=== PATIENT | female | born 1970 | race African-American/Black ===

== ENCOUNTER → 2022-01-17 | Outpatient (CLI) | payer BC ==
[~2022-01-17] MED LIST: IBUP-1027 PO
[2022-01-17 13:32] LABS: BASO # 0.1 x10^3/uL (0.0-0.2); BASO % 2 % (0-3); EOS # 0.1 x10^3/uL (0.0-0.7); EOS % 1 % (0-3); HEMATOCRIT 23.3 % (36.0-47.0); LYMPH # 0.7 x10^3/uL (1.0-4.8); LYMPH % 13 % (24-48); MEAN CORPUSCULAR HEMOGLOBIN 16 pg (25-35); MEAN CORPUSCULAR HGB CONC 29 g/dL (31-37); MEAN CORPUSCULAR VOLUME 56 fL (79-100); MONO # 0.5 x10^3/uL (0.0-1.1); MONO % 10 % (0-9); NEUT # 3.8 x10^3/uL (1.8-7.7); NEUT % 75 % (31-73); PLATELET COUNT 333 x10^3/uL (140-400); RED BLOOD COUNT 4.18 x10^6/uL (3.50-5.40); WHITE BLOOD COUNT 5.1 x10^3/uL (4.0-11.0)
[2022-01-17 13:34] LABS: HEMOGLOBIN 6.9 g/dL (12.0-15.5)
--- NOTE | 2022-01-17 13:45 | NUR ---
pt hbg is 6.9. reported to nurse and pt.
[2022-01-17 13:52] LABS: ALBUMIN 3.8 g/dL (3.4-5.0); ALBUMIN/GLOBULIN RATIO 1.1 (1.0-1.7); CALCIUM 8.5 mg/dL (8.5-10.1); CREATININE 0.8 mg/dL (0.6-1.0); GFR 90.8; POTASSIUM 4.1 mmol/L (3.5-5.1); TOTAL BILIRUBIN 0.4 mg/dL (0.2-1.0); TOTAL PROTEIN 7.4 g/dL (6.4-8.2)
[2022-01-17 14:08] LABS: ANISOCYTOSIS MOD; BIZZARE CELLS OCC; HYPOCHROMIA MARKED; MICROCYTOSIS MARKED; OVALOCYTES FEW; PLT ESTIMATE ADEQUATE (ADEQUATE); POIKILOCYTOSIS SLIGHT; POLYCHROMASIA SLIGHT; TARGET CELLS FEW; TEAR DROP CELLS OCC
[2022-01-17 14:09] LABS: SCHISTOCYTES OCC
--- NOTE | 2022-01-20 08:45 | NUR ---
Faxed pretesting results to Dr Young with attn to [facility] 6.9
--- NOTE | 2022-01-20 09:30 | NUR ---
Inocencia from Dr Young called back regarding labs. Patient to receive iron infusions prior to surgery.
== END ==
LOC: SURGPAT 12:32
PROVIDERS: ATTEND Obstetrics & Gynecology
DX: Z01.812 Encounter for preprocedural laboratory examination (principal)
CPT/HCPCS: 36415; 80053; 85025

== ENCOUNTER 2022-02-05 06:01 | Observation (INO) | payer BC ==
[2022-01-17 13:05] VITALS: BP 143/83
[2022-02-05] VITALS (13 sets, daily range): BP systolic 89–118; BP diastolic 47–88
[~2022-02-05] VITALS: Ht 170.2 cm; Wt 80.9 kg
[~2022-02-05 06:01] MED LIST changes: +HYDROmorphone 2 MG/ML INJ. IVP PRN; +MORPHINE SULFATE 2 MG/ML INJ. IVP PRN; +PROCHLORPERAZINE 10 MG/2 ML VIAL. IVP PRN; +fentaNYL PF VIAL 100 MCG/2 ML VIAL IVP PRN
[2022-02-05] MEDS: IV RINGERS,LACTATED 1000ML 1,000 ML IV SCH ×2 (06:29→10:13)
[2022-02-05 06:53] LABS: PROTHROMBIN TIME PATIENT 13.4 SEC (11.7-14.0)
[2022-02-05] MEDS ORDERED: ROCURONIUM 50 MG/5 ML VIAL. ONE (07:04)
[2022-02-05] MEDS ORDERED: ONDANSETRON PF 4 MG/2 ML VIAL. ONE (07:06)
[2022-02-05] MEDS ORDERED: DEXAMETHASONE SOD PHOS 4 MG/ML VIAL ONE (07:06)
[2022-02-05] MEDS ORDERED: LIDOCAINE 2% PF 5 ML VIAL. ONE (07:06)
[2022-02-05] MEDS ORDERED: BUPIVACAINE-EPI 0.25% 30 ML VIAL KIT. ONE (07:06)
[2022-02-05] MEDS ORDERED: INDIGOTINDISULFONATE SODIUM 40 MG/5 ML AMPUL. ONE (07:06)
[2022-02-05] MEDS ORDERED: PROPOFOL 10 MG/ML (20ML) VIAL. IV ONE (07:06)
[2022-02-05] MEDS ORDERED: ESTROGENS, CONJ VAGINAL CREAM 30GM TUBE. ONE (07:06)
[2022-02-05] MEDS ORDERED: SEVOFLURANE > 120 MINUTES. IH ONE ×2 (07:06→08:33)
[2022-02-05] MEDS ORDERED: fentaNYL PF VIAL 100 MCG/2 ML VIAL ONE (07:07)
[2022-02-05] MEDS ORDERED: KETOROLAC 30 MG/ML VIAL. ONE (07:09)
[2022-02-05] MEDS ORDERED: MIDAZOLAM HCL/PF 2 MG/2 ML VIAL. ONE (07:10)
[2022-02-05 07:42] LABS: HEMATOCRIT 33.9 % (36.0-47.0); HEMOGLOBIN 10.1 g/dL (12.0-15.5)
[2022-02-05] MEDS ORDERED: PHENYLEPHRINE in 0.9% NACL PF 1 MG/10 ML SYRINGE. IV ONE (07:48)
[2022-02-05] MEDS ORDERED: GLYCOPYRROLATE 1 MG/5 ML VIAL. ONE (08:07)
[2022-02-05] MEDS ORDERED: NEOSTIGMINE 10 MG/10 ML VIAL. ONE (08:07)
[2022-02-05] MEDS ORDERED: NEOSTIGMINE METHYLSULFATE 5 MG/5 ML SYRINGE. ONE (08:08)
[2022-02-05] MEDS ORDERED: HYDROmorphone 2 MG/ML INJ. ONE (09:21)
[2022-02-05] MEDS ORDERED: MAG HYDROX/ALUMINUM HYD/SIMETH 30 ML ORAL.SUSP PO PRN (10:00)
[2022-02-05] MEDS ORDERED: MORPHINE SULFATE 2 MG/ML INJ. IV PRN (10:00)
[2022-02-05] MEDS ORDERED: KETOROLAC 30 MG/ML VIAL. IVP PRN (10:00)
[2022-02-05] MEDS ORDERED: diphenhydrAMINE HCL 25 MG CAPSULE PO PRN (10:00)
[2022-02-05] MEDS ORDERED: HYDROcodone/APAP 5/325MG 1 TAB TABLET PO PRN (10:00)
[2022-02-05] MEDS ORDERED: oxyCODONE/APAP 5/325 1 TAB TABLET PO PRN (10:00)
[2022-02-05] MEDS ORDERED: NALOXONE 0.4 MG/ML VIAL. IV PRN (10:00)
[2022-02-05] MEDS ORDERED: ZOLPIDEM 5 MG TABLET. PO PRN (10:00)
[2022-02-05] MEDS ORDERED: ONDANSETRON PF 4 MG/2 ML VIAL. IV PRN (10:00)
[2022-02-05] MEDS ORDERED: LACTULOSE 20 GM/30 ML SOLUTION. PO PRN (10:00)
[2022-02-05] MEDS ORDERED: MAGNESIUM HYDROXIDE 2,400 MG/30 ML ORAL.SUSP. PO PRN (10:00)
[2022-02-05] MEDS ORDERED: 0.9 % SODIUM CHLORIDE 10 ML DISP.SYRIN. IV PRN (10:00)
[2022-02-05] MEDS ORDERED: diphenhydrAMINE 50 MG/ML VIAL IV PRN (10:00)
[2022-02-05] MEDS ORDERED: SIMETHICONE 80 MG TAB.CHEW PO PRN (10:00)
[2022-02-05] MEDS ORDERED: CALCIUM CARBONATE 500 MG TAB.CHEW PO PRN (10:00)
--- NOTE | 2022-02-05 10:15 | PDOC4 ---
BRIEF OPERATIVE NOTE Date: Feb 05, 2022 Pre-Op Diagnosis enlarged fibroid uterus, menorrhagia, anemia Post-Op Diagnosis same Procedure Performed LAVH, bilateral salpingectomy, morcellation of enlarged fibroid uterus vaginally Surgeon Dr. Beth Young Merchandise Flow Manager SHANELL Stearns Anesthesiologist Dr. Edwar Masters Anesthesia Type: General Blood Loss 150cc IV Fluid 1600cc Urine Output 160cc clear via cooley Specimens Obtained cervix, uterus, pieces of fibroids, tubes Findings very enlarged fibroid uterus, normal bilateral tubes and ovaries, normal appendix, grossly normal RUQ area Complications none Operative Note [id number] BETH YOUNG MD Feb 05, 2022 10:14
[2022-02-05 10:54] LABS: HEMATOCRIT 30.3 % (36.0-47.0); HEMOGLOBIN 9.1 g/dL (12.0-15.5); RED BLOOD COUNT 4.31 x10^6/uL (3.50-5.40); RED CELL DISTRIBUTION WIDTH 41.1 % (11.5-14.5); WHITE BLOOD COUNT 7.1 x10^3/uL (4.0-11.0)
--- NOTE | 2022-02-05 11:30 | OP ---
DATE OF SURGERY: 02/05/2022 PREOPERATIVE DIAGNOSES: Enlarged fibroid uterus, menorrhagia, chronic anemia. POSTOPERATIVE DIAGNOSES: Enlarged fibroid uterus, menorrhagia, chronic anemia. PROCEDURE: Laparoscopic-assisted vaginal hysterectomy, bilateral salpingectomy and morcellation of an enlarged fibroid uterus vaginally. SURGEON: Beth Young MD. SAP ABAP PROGRAMMER: SHANELL Delcid ANESTHESIOLOGIST: Dr. Lauri Masters. ANESTHESIA: General. BLOOD LOSS: 150 mL. URINE OUTPUT: 160 mL clear via Barrios catheter. IV FLUIDS: 1600 mL of crystalloid. SPECIMEN: The cervix, enlarged fibroid uterus morcellated in pieces and bilateral tubes. FINDINGS: A very enlarged fibroid uterus, normal bilateral tubes and ovaries, grossly normal bowel, right upper quadrant and appendix. No significant adhesive disease. DESCRIPTION OF PROCEDURE: This patient was taken to the operating room where general anesthesia was placed. The [facility] The patient's abdomen and vagina were prepped and draped in the normal sterile fashion and a Barrios catheter had been inserted under sterile technique. Upon my arrival, a timeout was performed. Once everyone agreed on the patient, the site, the procedure, the antibiotics, the procedure was initiated. A bivalve speculum was placed in the patient's vagina. A single-tooth tenaculum was used to grasp the anterior lip of the cervix. A 10 mL of 0.25% Marcaine with epinephrine was used to circumferentially inject around the cervix for both hemodissection and hemostatic purposes later. The Valtchev uterine manipulator was placed through the endocervical os, locked on the single tooth tenaculum and the bivalve speculum was then removed. Top gloves were discarded and changed. Attention was then turned to the abdomen where a supraumbilical skin incision was made. She had an abdominoplasty and had it moved down and this is an enlarged uterus, so I went a couple of centimeters above where her umbilicus is right now making a small incision, doing a curved Aurelia through the subcuticular layer and then using the 5 mm Visiport to directly enter the abdominal cavity. Opening patient pressure was 2-3 mmHg. Direct abdominal placement was confirmed via the laparoscope. Overhead lights were dimmed. The patient was placed in Trendelenburg position. Right and left lower quadrant ports were placed. There were no adhesions on the inside so after transilluminating the abdominal wall, finding an area clear of any vasculature, injecting the all 3 with local prior to making the incision, but transilluminating the abdominal wall, finding an area clear of any vasculature using local making the incision and placing in under direct visualization. This was done on the left and right, 4 mL of air was placed in the trocar cuff and then the camera was moved laterally to look at the umbilical. Once it was assured to be in and clear it was also insufflated with 4 mL of air in the trocar cuff. Camera was moved back to the midline. Both tubes and ovaries were normal. The right one was already flipped up, the left one was easily obtained. Both ureters could very clearly be seen. There was no adhesive disease in the pelvis. So, starting on the left side, elevating the left tube and ovary, going above the ovary, below the tube, doing a salpingectomy, getting the uterus up and over crossing the left uteroovarian pedicle, getting the left round ligament, cauterizing and cutting it with the LigaSure. This was done all the same on the right side, elevating the right tube and ovary, again identifying the ureter low in the pelvis below the ovary, going above the ovary, below the tube, doing a salpingectomy with the LigaSure and then kind of pulling up and over on the cornua of the uterus, crossing the right uteroovarian pedicle leaving both ovaries per patient request and then getting the right round ligament as well. The bladder flap was then created sharply elevating the bladder flap and using the monopolar hook to cut across and peel down, the bladder flap came down very beautifully and nicely. The vessels were obtained on the patient's left side, crossing contralaterally, hugging the cervix, going down through the cardinal and broad ligaments to the level of the uterosacral. Once we were through that round ligament on the right and the bladder was down, crossing the uterine vessels and then hugging the cervix posteriorly and going down through the cardinal and broad ligaments to the uterosacral. The uterus was completely rojelio, free, no adhesions so all instruments were removed and attention was turned vaginally. The single tooth and Valtchev were removed. Thyroid Harrison clamps were placed on the anterior and posterior lips of the cervix respectively. A weighted speculum was placed in the patient's vagina and a scalpel was used to make a circumferential incision in the cervix. The cervix was elevated. pickups with teeth and curved Harvey scissors were used to sharply enter the posterior cul-de-sac. A #0 Vicryl stitch was used to secure the posterior peritoneum to the vaginal cuff and tagged with a curved Aurelia clamp. The needle was cut and passed off and the short weighted speculum was removed and replaced with the long weighted Winnie speculum in the posterior cul-de-sac. The bladder was taken down sharply off the anterior cervix. Going up high there was nothing left except the bladder flap. Both sides were free. The posterior was free. There were no uterosacrals to grab because we went so low from above. So at this point, coming in from the sides and around the top the bladder flap was taken down and the Metzenbaums were used to stay and had the surface of the cervix and opened it up and gently entered in. Once we were in the entire specimen was free and it started pulling down, so a retractor was placed anteriorly and on the sides. I placed a single tooth tenaculum posteriorly double on the side and using the Harrison's just to begin morcellating the uterus in pieces. Once it was all out the long Allis was used to grasp the anterior bladder peritoneum. Sponge stick was used to examine the pedicles. The cuff was bleeding so I put a couple of interrupted baseball like interrupted sutures on both sides with excellent results. There was no active bleeding. A sponge stick was used to examine the pedicles. The long weighted speculum was removed and replaced with the short weighted vaginal speculum. I did put little sutures on the sides pulling back the sidewall peritoneum and tagging it to that exterior cuff and kind of putting a tag there where the uterosacrals would be to open it up and examine it before closing it. At this point, #2 Vicryl was taken through the anterior bladder peritoneum, left side, posterior peritoneum and right side, thus closing the peritoneum in a pursestring like fashion. The right and left tags were clipped. The cuff was closed in an anterior to posterior running locked fashion with a full length 2-0 Vicryl and tied to the posterior cuff tag. It was completely hemostatic and dry. All counts were correct below x 2 by OR personnel before going above. All gloves were discarded and changed and attention was turned back above for a second look. The patient was placed back in Trendelenburg, overhead lights were dimmed again. Second look from above revealed hemostasis. There was a tiny bit of clots in the left pericolic gutter. The right side was clear. Again, the appendix, right upper quadrant were good. The cuff was hemostatic. Both ovaries looked good. Copious irrigation revealed hemostasis. Tisseel was placed over the cuff with excellent results. The syringe was used to deflate all three trocars. Right and left lower quadrant ports were taken out under direct visualization, they were hemostatic. Gas was released from that umbilical port and all 3 port sites were closed with 4-0 nylon at the skin, 7 mL of total local was used upon entry placing the ports, 10 below for a total of 17. Once she was closed the patient was awakened from anesthesia and brought to recovery room in stable condition. ORQUIDEA/BLAZE DR: Kim TID: [id number]
--- NOTE | 2022-02-05 11:30 | NUR ---
The patient, JOSE CLEMENT, 51 y/o, F admitted by ANSLEY HANDLEY MD, was given written information regarding hospital policies, unit procedures and contact persons. Pt. oriented to call light. Incisions assessed and dressings CDI. Valuables were checked and kept with patient.
[2022-02-06 03:40] VITALS: BP 95/53
[2022-02-06 04:05] LABS: HEMOGLOBIN 8.1 g/dL (12.0-15.5); MEAN CORPUSCULAR HEMOGLOBIN 22 pg (25-35); MEAN CORPUSCULAR HGB CONC 31 g/dL (31-37); MEAN CORPUSCULAR VOLUME 71 fL (79-100); PLATELET COUNT 203 x10^3/uL (140-400); RED BLOOD COUNT 3.69 x10^6/uL (3.50-5.40); RED CELL DISTRIBUTION WIDTH 41.7 % (11.5-14.5)
[2022-02-06 04:15] LABS: CALCIUM 7.9 mg/dL (8.5-10.1); CREATININE 0.8 mg/dL (0.6-1.0); GFR 90.8; POTASSIUM 4.2 mmol/L (3.5-5.1)
[2022-02-06 05:04] LABS: % EOS 1 % (0-5); % LYMPHS 19 % (24-48); % MONOS 1 % (0-10); % SEGS 79 % (35-66); PLT ESTIMATE ADEQUATE (ADEQUATE); TARGET CELLS OCC
[2022-02-06 05:05] LABS: ANISOCYTOSIS MARKED; HYPOCHROMIA MOD; MICROCYTOSIS MOD; OVALOCYTES OCC; POIKILOCYTOSIS SLIGHT; TEAR DROP CELLS OCC
[2022-02-06 05:06] LABS: HELMET CELLS OCC; SPHEROCYTES OCC
[2022-02-06 06:32] VITALS: BP 93/56
[2022-02-06 07:45] VITALS: BP 95/50
--- NOTE | 2022-02-06 09:20 | NUR ---
Patient discharged to home accompanied by and nursing personnel in stable condition.
--- NOTE | 2022-02-06 09:33 | PDOC ---
SURGICAL PROGRESS NOTE DATE: 02/06/22 TIME: 09:28 Subjective Doing well without complaints. Voiding without catheter, +flatus, scant Vb, tolerating regular diet Vital Signs Vital Signs Date Time Temp Pulse Resp B/P (MAP) Pulse Ox O2 Delivery O2 Flow Rate FiO2 02/06/22 07:45 Room Air 02/06/22 07:45 98.4 66 18 95/50 (65) 97 98.4 02/05/22 10:50 10.0 I&O Intake and Output 02/06/22 07:00 Intake Total 2700 ml Output Total 470 ml Balance 2230 ml Intake Oral 650 ml IV Total 2050 ml Output Urine Total 320 ml Estimated Blood Loss 150 ml # Voids 1 PATIENT HAS A CHEEMA: No General: Alert, Oriented X3, Cooperative, No acute distress HEENT: Atraumatic Heart: Regular rate Abdomen: Normal bowel sounds, Soft, No tenderness Extremities: No clubbing, No cyanosis, No edema, No tenderness/swelling Skin: No rashes, No breakdown Labs Laboratory Tests Test 02/05/22 06:16 02/05/22 06:17 02/05/22 06:30 02/05/22 10:45 Bedside Urine HCG, Qualitative Hcg negative (Negative) POC SARS CoV-2 Antigen Negative (NEGATIVE) Hemoglobin 10.1 g/dL (12.0-15.5) 9.1 g/dL (12.0-15.5) Hematocrit 33.9 % (36.0-47.0) 30.3 % (36.0-47.0) Mean Corpuscular Hemoglobin Concent 30 g/dL (31-37) 30 g/dL (31-37) Prothrombin Time 13.4 SEC (11.7-14.0) Prothromb Time International Ratio 1.1 (0.8-1.1) Activated Partial Thromboplast Time 28 SEC (24-38) White Blood Count 7.1 x10^3/uL (4.0-11.0) Red Blood Count 4.31 x10^6/uL (3.50-5.40) Mean Corpuscular Volume 70 fL (79-100) Mean Corpuscular Hemoglobin 21 pg (25-35) Red Cell Distribution Width 41.1 % (11.5-14.5) Platelet Count 204 x10^3/uL (140-400) Test 02/06/22 03:25 White Blood Count 8.0 x10^3/uL (4.0-11.0) Red Blood Count 3.69 x10^6/uL (3.50-5.40) Hemoglobin 8.1 g/dL (12.0-15.5) Hematocrit 26.0 % (36.0-47.0) Mean Corpuscular Volume 71 fL (79-100) Mean Corpuscular Hemoglobin 22 pg (25-35) Mean Corpuscular Hemoglobin Concent 31 g/dL (31-37) Red Cell Distribution Width 41.7 % (11.5-14.5) Platelet Count 203 x10^3/uL (140-400) Neutrophils (%) (Auto) % (31-73) Lymphocytes (%) (Auto) % (24-48) Monocytes (%) (Auto) % (0-9) Eosinophils (%) (Auto) % (0-3) Basophils (%) (Auto) % (0-3) Neutrophils # (Auto) x10^3/uL (1.8-7.7) Lymphocytes # (Auto) x10^3/uL (1.0-4.8) Monocytes # (Auto) x10^3/uL (0.0-1.1) Eosinophils # (Auto) x10^3/uL (0.0-0.7) Basophils # (Auto) x10^3/uL (0.0-0.2) Segmented Neutrophils % 79 % (35-66) Lymphocytes % 19 % (24-48) Monocytes % 1 % (0-10) Eosinophils % 1 % (0-5) Platelet Estimate Adequate (ADEQUATE) Hypochromasia Mod Poikilocytosis Slight Anisocytosis Marked Microcytosis Mod Spherocytes Occ Target Cells Occ Tear Drop Cells Occ Ovalocytes Occ Helmet Cells Occ Sodium Level 139 mmol/L (136-145) Potassium Level 4.2 mmol/L (3.5-5.1) Chloride Level 106 mmol/L (98-107) Carbon Dioxide Level 27 mmol/L (21-32) Anion Gap 6 (6-14) Blood Urea Nitrogen 11 mg/dL (7-20) Creatinine 0.8 mg/dL (0.6-1.0) Estimated GFR (Cockcroft-Gault) 90.8 Glucose Level 91 mg/dL (70-99) Calcium Level 7.9 mg/dL (8.5-10.1) Laboratory Tests Test 02/05/22 10:45 02/06/22 03:25 White Blood Count 7.1 x10^3/uL (4.0-11.0) 8.0 x10^3/uL (4.0-11.0) Red Blood Count 4.31 x10^6/uL (3.50-5.40) 3.69 x10^6/uL (3.50-5.40) Hemoglobin 9.1 g/dL (12.0-15.5) 8.1 g/dL (12.0-15.5) Hematocrit 30.3 % (36.0-47.0) 26.0 % (36.0-47.0) Mean Corpuscular Volume 70 fL (79-100) 71 fL (79-100) Mean Corpuscular Hemoglobin 21 pg (25-35) 22 pg (25-35) Mean Corpuscular Hemoglobin Concent 30 g/dL (31-37) 31 g/dL (31-37) Red Cell Distribution Width 41.1 % (11.5-14.5) 41.7 % (11.5-14.5) Platelet Count 204 x10^3/uL (140-400) 203 x10^3/uL (140-400) Neutrophils (%) (Auto) % (31-73) Lymphocytes (%) (Auto) % (24-48) Monocytes (%) (Auto) % (0-9) Eosinophils (%) (Auto) % (0-3) Basophils (%) (Auto) % (0-3) Neutrophils # (Auto) x10^3/uL (1.8-7.7) Lymphocytes # (Auto) x10^3/uL (1.0-4.8) Monocytes # (Auto) x10^3/uL (0.0-1.1) Eosinophils # (Auto) x10^3/uL (0.0-0.7) Basophils # (Auto) x10^3/uL (0.0-0.2) Segmented Neutrophils % 79 % (35-66) Lymphocytes % 19 % (24-48) Monocytes % 1 % (0-10) Eosinophils % 1 % (0-5) Platelet Estimate Adequate (ADEQUATE) Hypochromasia Mod Poikilocytosis Slight Anisocytosis Marked Microcytosis Mod Spherocytes Occ Target Cells Occ Tear Drop Cells Occ Ovalocytes Occ Helmet Cells Occ Sodium Level 139 mmol/L (136-145) Potassium Level 4.2 mmol/L (3.5-5.1) Chloride Level 106 mmol/L (98-107) Carbon Dioxide Level 27 mmol/L (21-32) Anion Gap 6 (6-14) Blood Urea Nitrogen 11 mg/dL (7-20) Creatinine 0.8 mg/dL (0.6-1.0) Estimated GFR (Cockcroft-Gault) 90.8 Glucose Level 91 mg/dL (70-99) Calcium Level 7.9 mg/dL (8.5-10.1) I have reviewed the following labs, vitals, nursing Assessment/Plan POD#1 s/p LAVH/bilateral salpingectomy/morcellation of uterus vaginally to get it out d/c to home NPV x 6 weeks No lifting > 15lbs x 6 weeks already has pain meds at home ok to alternate OTC ibuprofen, prn keep scheduled follow up with me in office call or return sooner for any other questions or concerns not limited to but including pain unrelieved with pain meds, increased or unexplained vb or T>100.4 Justicifation of Admission Dx: Justifications for Admission: Justification of Admission Dx: Yes ANSLEY HANDLEY MD Feb 06, 2022 09:33
--- NOTE | 2022-02-06 17:07 | PATHOLOGY ---
[facility] Accession Number: [id number] . 01 Material submitted: . uterus - UTERUS, CERVIX AND BILATERAL TUBES. Modifiers: bilateral . 01 Clinical history: . MENORRHAGIA, ENLARGED UTERUS LAUH BILATERAL SALPINGECTOMY . 02 Diagnosis: Segments of uterine corpus, uterine cervix, and bilateral fallopian tubes, laparoscopic assisted vaginal hysterectomy with bilateral salpingectomy: - Leiomyomas, uterine corpus, multiple (uterine weight 695 grams). - Mild chronic cervicitis with focal squamous metaplasia. - Proliferative endometrium. - Congestion, cystic Walthard rests, and paratubal cysts of bilateral fallopian tubes. (JPM:magi; 02/06/2022) S 02/06/2022 1631 Local . 02 Comment: There is no atypia or evidence of malignancy. (JPM:magi; 02/06/2022) . 02 Electronically signed: . Hayden Mcmullen MD, Pathologist NPI- [id number] . 01 Gross description: . The specimen is received in formalin, labeled "Juani Rojas, uterus, cervix, bilateral tubes". Received are multiple segments of uterine corpus and fibroid tissue, a segment of lower uterine corpus with attached cervical stump, and bilateral fallopian tubes measuring 23.2 x 17.8 x 8.5 cm in aggregate dimensions. The fibroid and uterine tissue, and cervical stump, having an aggregate weight of 695 g. The fallopian tubes weigh 6 and 7 g, and cannot be oriented. The uterine serosa is pink-stephenson and slightly wrinkled in appearance. The 1.5 cm cervical os is surrounded by pale stephenson, smooth to slightly disrupted ectocervical mucosa. The cervical stump is oriented using the peritoneal reflection and the anterior aspect is inked black. The cervical stump is opened laterally to reveal a pink- stephenson, corrugated endocervical canal measuring 4.3 cm in length. The endometrium is identified displaying a pink-stephenson and smooth to granular appearance and measures 0.1 cm in thickness. The myometrium is stephenson-pink and trabeculated in appearance. Sectioning through the fibroid tissue reveals white, whorled cut surfaces with no gross evidence of degeneration or necrosis. . The 6 g fimbriated fallopian tube measures 7.3 cm is in length by up to 0.7 cm in diameter and displays multiple attached paratubal cysts ranging in size from 0.2-1.8 cm. Sectioning reveals a pinpoint to patent lumen. . The 7 g fimbriated fallopian tube measures 7.5 cm is in length by up to 0.9 cm in diameter with multiple attached paratubal cysts ranging in size from 0.2-1.9 cm. Sectioning reveals a pinpoint to patent lumen. The specimen is submitted representatively as follows: . A1 12:00 cervix A2 6:00 cervix A3-A4 patient representative sections of endomyometrium A5-A6 patient representative sections of fibroids A7 patient representative sections of 6 g fallopian tube A8 patient representative sections of 7 g fallopian tube. . A gross photograph is taken. (CAA; 02/05/2022) QA/[facility] 02/06/2022 1401 Local . 02 Pathologist provided ICD-10: D25.9, N72, N87.9, N83.8 . 02 CPT . 217721 Specimen Comment: A courtesy copy of this report has been sent to [phone] Specimen Comment: Report sent to Specimen Comment: A duplicate report has been generated due to demographic updates. Performed at: [facility] [address], [place] [id number] MD Fernando Joseph MD Phone: [phone] [facility]formed at: 02 [facility] [address] [place], [place] [id number] MD Hayden Mcmullen MD Phone: [phone]
== END 2022-02-06 09:20 | disposition home or self-care (01) ==
LOC: SURG 06:01 → EDUNIT# 07:30 → 3 SO LND 10:00
PROVIDERS: ADMIT Obstetrics & Gynecology; ATTEND Obstetrics & Gynecology
DX: N92.0 Excessive and frequent menstruation with regular cycle (principal); Z20.822 Contact with and (suspected) exposure to COVID-19; D25.9 Leiomyoma of uterus, unspecified; D64.9 Anemia, unspecified; Z79.899 Other long term (current) drug therapy
CPT/HCPCS: 36415; 58554; 80048; 81025; 85007; 85014; 85018; 85025; 85027; 85610; 85730; 86850; 86900; 86901; 96374; A4314; A4364; A4930; A6219; G0378; G0379; J0690; J1100; J1170; J1885; J2250; J2370; J2405; J2704; J2710; J3010; J3480; J3490; 88307; A4657